=== PATIENT | female | born 2005 | race Hispanic/Latino ===

== ENCOUNTER 2023-10-07 23:55 | Emergency (ER) | payer BC ==
[~2023-10-07] VITALS: Ht 160 cm; Wt 57.2 kg
[2023-10-08] MEDS ORDERED: SODIUM CHLORIDE 0.9% 1,000 ML IV ONE (00:15)
[2023-10-08] MEDS ORDERED: ondansetron HCL 4 MG/2 ML VIAL IV ONE (00:15)
[2023-10-08] MEDS ORDERED: MORPHINE SULFATE 4 MG/ML VIAL IV ONE (00:15)
[2023-10-08 00:29] LABS: BASOPHILS 0.4 % (0-2); HEMATOCRIT 41.1 % (35.0-50.0); HEMOGLOBIN 14.2 g/dL (12.0-18.0); LYMPHOCYTES 6.9 % (24-44); MCH 30.8 (27-36); MCHC 34.5 g/dl (30-36); MCV 89.3 fl (81-99); MONOCYTES 9.2 % (0-12); NEUTROPHILS 83.5 % (39-80); PLATELET COUNT 295 K/uL (140-440); RDW 14.3 (10.5-15.0)
[2023-10-08 00:38] LABS: BILIRUBIN, URINE NEGATIVE (negative); BLOOD/HGB, URINE SMALL (Negative); KETONE, URINE >=80 (Negative); LEUK ESTERASE, URINE SMALL (negative); NITRITE, URINE POSITIVE (negative)
[2023-10-08 00:40] LABS: ALBUMIN 4.5 g/dL (3.4-5.0); ALBUMIN/GLOBULIN RATIO 1.13 (1.1-2.4); ANION GAP 19.2 (7-21); BILIRUBIN, TOTAL 0.7 ng/dL (0.2-1.0); BUN/CREATININE RATIO 12.82 (6.0-28.6); CALCIUM 9.7 mg/dL (8.5-10.1); CREATININE, SERUM 0.78 mg/dL (0.55-1.02); POTASSIUM 3.2 mmol/L (3.5-5.1); PROTEIN, TOTAL 8.5 g/dL (6.4-8.2)
[2023-10-08 00:51] LABS: BACTERIA, URINE 2+ /hpf (negative); CASTS, URINE NONE SEEN \\lpf; COLLECTION TYPE, URINE CLEAN CATCH; CRYSTALS, URINE NONE SEEN (0-1+); EPITHELIAL CELLS, URINE SQUAMOUS 1+ /lpf (0-1+); REFLEX CULTURE, URINE Yes (No); WHITE BLOOD CELLS, URINE 41-50 /HPF (0-5)
[2023-10-08] MEDS ORDERED: CEFDINIR300 MG PO (01:28)
[2023-10-08] MEDS ORDERED: HYDROCODON-ACE1 EA10 PO (01:28)
[2023-10-08] MEDS ORDERED: ONDANSETRON ODT8 MG PO (01:28)
[2023-10-08] MEDS ORDERED: ONDANSETRON 4 MG HOME.PACK SL ONE (01:30)
[2023-10-08] MEDS ORDERED: HYDROCODONE BIT/ACETAMINOPHEN 5/325 MG 1 TAB HOME.PACK PO ONE (01:30)
[2023-10-08] MEDS ORDERED: CEFTRIAXONE/SODIUM CHLORIDE 2 GM/100 ML PIGGYBACK IV ONE (01:30)
[2023-10-08] MEDS ORDERED: CEFDINIR 300 MG HOME.PACK PO ONE (01:30)
[2023-10-08 02:02] VITALS: BP 132/89
== END 2023-10-08 02:05 | disposition home or self-care (01) ==
LOC: ED 23:55
PROVIDERS: Family Medicine
DX: N12 Tubulo-interstitial nephritis, not specified as acute or chronic (principal)
CPT/HCPCS: 36415; 74177; 80053; 81001; 83690; 84703; 85025; 87088; 96375; 99284-25; A9270; J0696; J2270; J2405; J7030; Q9967

== ENCOUNTER 2024-07-01 19:14 | Emergency (ER) | payer BC ==
[~2024-07-01] VITALS: Ht 160 cm; Wt 61.7 kg
[~2024-07-01 19:14] MED LIST: CEFDINIR300 MG PO; HYDROCODON-ACE1 EA10 PO; ONDANSETRON ODT8 MG PO
[2024-07-01] MEDS ORDERED: ondansetron HCL 4 MG/2 ML VIAL IV ONE (20:00)
[2024-07-01] MEDS ORDERED: LACTATED RINGER'S 1,000 ML IV ONE (20:00)
[2024-07-01 20:01] LABS: HEMOGLOBIN 13.8 g/dL (12.0-18.0); MCV 93.2 fl (81-99)
[2024-07-01 20:04] LABS: BASOPHILS 0.2 % (0-2); EOSINOPHILS 0.1 % (0-6); HEMATOCRIT 40.3 % (35.0-50.0); LYMPHOCYTES 3.2 % (24-44); MCH 31.9 (27-36); MCHC 34.2 g/dl (30-36); NEUTROPHILS 90.5 % (39-80); PLATELET COUNT 313 K/uL (140-440); RBC 4.33 M/ul (4.3-5.7); RDW 14.1 (10.5-15.0)
[2024-07-01 20:30] LABS: ALBUMIN 3.4 g/dL (3.4-5.0); ALBUMIN/GLOBULIN RATIO 0.89 (1.1-2.4); ANION GAP 15.5 (7-21); BILIRUBIN, TOTAL 0.5 mg/dL (0.2-1.0); BUN/CREATININE RATIO 18.36 (6.0-28.6); CALCIUM 9.3 mg/dL (8.5-10.1); CREATININE, SERUM 0.49 mg/dL (0.55-1.02); POTASSIUM 3.5 mmol/L (3.5-5.1); PROTEIN, TOTAL 7.2 g/dL (6.4-8.2)
[2024-07-01 20:57] LABS: BILIRUBIN, URINE NEGATIVE (negative); BLOOD/HGB, URINE NEGATIVE (Negative); KETONE, URINE SMALL (Negative); LEUK ESTERASE, URINE NEGATIVE (negative); NITRITE, URINE NEGATIVE (negative)
[2024-07-01 21:13] LABS: INFLUENZA B NAA NEGATIVE (NEGATIVE); RESPIRATORY SYNCYTIAL VIR NAA NEGATIVE (NEGATIVE)
[2024-07-01] MEDS ORDERED: ONDANSETRON ODT8 MG PO (21:46)
[2024-07-01] MEDS ORDERED: ONDANSETRON 4 MG HOME.PACK SL ONE (22:00)
[2024-07-01 22:09] VITALS: BP 134/81
== END 2024-07-01 22:10 | disposition home or self-care (01) ==
LOC: ED 19:14
PROVIDERS: Family Medicine
DX: O99.611 Diseases of the digestive system complicating pregnancy, first trimester (principal); K52.9 Noninfective gastroenteritis and colitis, unspecified; Z3A.09 9 weeks gestation of pregnancy
CPT/HCPCS: 36415; 80053; 81003; 84702; 85025; 87502; 96361; 96374; 99284-25; A9270; J2405; J7121; U0002

== ENCOUNTER 2025-01-28 18:35 | Inpatient (IN) | payer BC, OTHER ==
[~2025-01-28] VITALS: Ht 160 cm; Wt 86.2 kg
[2025-01-28] MEDS ORDERED: TERBUTALINE SULFATE 1 MG/ML AMP SUB-Q PRN (19:30)
[2025-01-28] MEDS ORDERED: OXYTOCIN/0.9 % SODIUM CHLORIDE 30 UNITS/500 ML BAG IV SCH (19:30)
[2025-01-28] MEDS ORDERED: CALCIUM CARBONATE 500 MG CHEW PO PRN (19:30)
[2025-01-28] MEDS ORDERED: LIDOCAINE HCL 1% 30 ML SDV INJ PRN (19:30)
[2025-01-28] MEDS ORDERED: LACTATED RINGER'S 1,000 ML IV PRN (19:30)
[2025-01-28] MEDS ORDERED: MAGNESIUM HYDROXIDE/AL HYDROX 30 ML CUP PO PRN (19:30)
[2025-01-28] MEDS ORDERED: PENICILLIN G POTASSIUM 5 MUNITS in SODIUM CHLORIDE 0.9% 100 ML IV ONE (19:30)
[2025-01-28 20:20] LABS: MCH 31.3 PG (25.6-32.2); MCHC 34.1 g/dL (32.2-35.5); MCV 92.0 fL (79.4-94.8); RBC 3.99 M/uL (3.93-5.22)
[2025-01-28] MEDS ORDERED: OXYTOCIN/0.9 % SODIUM CHLORIDE 500 ML IV SCH (20:30)
[2025-01-28 20:32] LABS: PROTEIN, RANDOM URINE 13.0 mg/dL (NOT ESTABLISHED)
[2025-01-28 20:36] LABS: AST (SGOT) 19.0 U/L (15-37); GLOMERULAR FILTRATION RATE,EST 136.0 mL/min (>60); UREA NITROGEN 6.0 mg/dL (7-18)
[2025-01-28 20:38] LABS: AMPHETAMINES, URINE NEGATIVE (NEGATIVE); BARBITURATES, URINE NEGATIVE (NEGATIVE); BENZODIAZEPINE, URINE NEGATIVE (NEGATIVE); CANNABINOID, URINE NEGATIVE (NEGATIVE); COCAINE, URINE NEGATIVE (NEGATIVE); ECSTASY, URINE NEGATIVE (NEGATIVE); FENTANYL, URINE NEGATIVE (NEGATIVE); METHADONE, URINE NEGATIVE (NEGATIVE); OPIATES, URINE NEGATIVE (NEGATIVE); OXYCODONE, URINE NEGATIVE (NEGATIVE); PHENCYCLIDINE, URINE NEGATIVE (NEGATIVE)
[2025-01-28 20:58] LABS: ABO B; ANTIBODY SCREEN NEGATIVE; RH POSITIVE
[2025-01-28 21:19] VITALS: BP 158/93
[2025-01-29] MEDS ORDERED: PENICILLIN G POTASSIUM 5 MUNITS in SODIUM CHLORIDE 0.9% 100 ML IV ONE (01:45)
[2025-01-29] MEDS ORDERED: ROPIVACAINE 0.2% 200 ML BAG EPIDURAL SCH (04:45)
[2025-01-29] MEDS ORDERED: ePHEDrine sulfate 5 MG/ML SYRINGE IV PRN (04:45)
[2025-01-29] MEDS ORDERED: LACTATED RINGER'S 2,000 ML IV ONE (04:45)
[2025-01-29] MEDS ORDERED: LACTATED RINGER'S 500 ML IV PRN (04:45)
[2025-01-29] MEDS ORDERED: PENICILLIN G POTASSIUM 2.5 MUNITS in SODIUM CHLORIDE 0.9% 100 ML IV SCH (06:00)
[2025-01-29] MEDS ORDERED: ePHEDrine KIT FOR FBC IV ONE (06:01)
[2025-01-29] MEDS ORDERED: CALCIUM CARBONATE 500 MG CHEW PO PRN (16:15)
[2025-01-29] MEDS ORDERED: HYDROCORTISONE ACETATE 25 MG SUPP PR PRN (16:15)
[2025-01-29] MEDS ORDERED: OXYCODONE/APAP 5/325 TAB PO PRN (16:15)
[2025-01-29] MEDS ORDERED: MAGNESIUM HYDROXIDE 30 ML UDC PO PRN (16:15)
[2025-01-29] MEDS ORDERED: OXYTOCIN/0.9 % SODIUM CHLORIDE 500 ML IV SCH (16:15)
[2025-01-29] MEDS ORDERED: LIDOCAINE 2% VISCOUS 6 ML SYR TOP ONE ×2 (16:15)
[2025-01-29] MEDS ORDERED: WITCH HAZEL/GLYCERIN 1 EA PAD TOP PRN (16:15)
[2025-01-29] MEDS ORDERED: BENZOCAINE 60 ML AEROSOL TOP PRN (16:15)
[2025-01-29] MEDS ORDERED: IBUPROFEN 600 MG TAB PO PRN (16:15)
[2025-01-29] MEDS ORDERED: MAGNESIUM HYDROXIDE/AL HYDROX 30 ML CUP PO PRN (16:15)
[2025-01-29] MEDS ORDERED: SENNOSIDES/DOCUSATE 1 EA TAB PO SCH (21:00)
== END 2025-01-30 17:10 | disposition home or self-care (01) | DRG 807 ==
LOC: FBCO 18:35 → FBC 19:08
PROVIDERS: ADMIT Advanced Practice Midwife; ATTEND Advanced Practice Midwife
PROC: 3E033VJ Introduction of Other Hormone into Peripheral Vein, Percutaneous Approach (ICD-10-PCS; 2025-01-28)
PROC: 4A1HXCZ Monitoring of Products of Conception, Cardiac Rate, External Approach (ICD-10-PCS; 2025-01-28)
PROC: 10E0XZZ Delivery of Products of Conception, External Approach (ICD-10-PCS; principal; 2025-01-29)
DX: O13.4 Gestational [pregnancy-induced] hypertension without significant proteinuria, complicating childbirth (principal); Z37.0 Single live birth; Z3A.39 39 weeks gestation of pregnancy; O99.824 Streptococcus B carrier state complicating childbirth; O76 Abnormality in fetal heart rate and rhythm complicating labor and delivery; O77.0 Labor and delivery complicated by meconium in amniotic fluid; O69.81X0 Labor and delivery complicated by cord around neck, without compression, not applicable or unspecified
CPT/HCPCS: 36415; 80307; 82565; 82570; 84156; 84450; 84520; 84550; 85027; 86850; 86900; 86901; A9270; J2540; J7121